=== PATIENT | female | born 1950 | race Caucasian/White ===

== ENCOUNTER 2018-05-16 09:00 | Outpatient (CLI) | payer OTHER | END 2018-05-16 19:58 | disposition home or self-care (01) | LOC: SMA 09:00 | PROVIDERS: ATTEND Family Medicine | DX: Z12.31 Encounter for screening mammogram for malignant neoplasm of breast (principal) | CPT/HCPCS: 77067 ==

== ENCOUNTER 2019-05-20 11:02 | Outpatient (CLI) | payer OTHER | END 2019-05-20 20:48 | disposition home or self-care (01) | LOC: SMA 11:02 | PROVIDERS: ATTEND Family Medicine | DX: Z12.31 Encounter for screening mammogram for malignant neoplasm of breast (principal) | CPT/HCPCS: 77067 ==

== ENCOUNTER 2020-07-28 11:22 | Outpatient (CLI) | payer OTHER | END 2020-07-28 19:52 | disposition home or self-care (01) | LOC: SMA 11:22 | PROVIDERS: ATTEND Family Medicine | DX: Z12.31 Encounter for screening mammogram for malignant neoplasm of breast (principal) | CPT/HCPCS: 77067 ==